=== PATIENT | female | born 1980 | race Caucasian/White ===

== ENCOUNTER 2021-08-28 08:04 | Emergency (ER) | payer MEDICAID, OTHER ==
[~2021-08-28] VITALS: Ht 167.6 cm; Wt 86.0 kg
[2021-08-28] MEDS ORDERED: MELA3TAB39 PO ×2 (09:25)
[2021-08-28] MEDS ORDERED: DOCU100C40 PO ×2 (09:25)
[2021-08-28] MEDS ORDERED: LURA40TA2 PO ×2 (09:33)
[2021-08-28] MEDS ORDERED: BENZ1TAB7 PO ×2 (09:33)
[2021-08-28] MEDS ORDERED: NICO2LOZ47 BC ×2 (09:33)
[2021-08-28] MEDS ORDERED: LORA10CA PO ×2 (09:33)
[2021-08-28] MEDS ORDERED: HYDR50CA5 PO ×2 (09:33)
[2021-08-28 09:37] LABS: CLARITY,URINE CLEAR (Clear); COLOR,URINE YELLOW (Yellow); GLUCOSE, URINE NEGATIVE (Neg); KETONES,URINE NEGATIVE (Neg); LEUKOCYTE ESTERASE ,URINE TRACE (Neg); NITRITES, URINE NEGATIVE (Neg); OCCULT BLOOD,URINE NEGATIVE (Neg); PROTEIN,URINE NEGATIVE (Neg); UROBILINOGEN,URINE 0.2 E.U/dL (0.2-1.0)
[2021-08-28 09:40] LABS: UA COLLECTION TYPE CLN CATCH MIDSTREAM
[2021-08-28 09:41] LABS: BACTERIA,URINE NONE SEEN /HPF (Neg); MUCUS STRANDS NONE SEEN /LPF (Neg); RBC,URINE NONE SEEN /HPF (0-2); SQUAMOUS EPITHELIAL CELL,UR FEW /LPF (FEW); WBC,URINE NONE SEEN /HPF (0-4)
[2021-08-28 09:44] LABS: URINE AMPHETAMINE SCREEN NEGATIVE (Neg); URINE BARBITUATE SCREEN NEGATIVE (Neg); URINE BENZODIAZEPINES SCREEN NEGATIVE (Neg); URINE CANNABINOID SCREEN NEGATIVE (Neg); URINE COCAINE SCREEN NEGATIVE (Neg); URINE METHADONE SCREEN NEGATIVE (Neg); URINE OPIATE SCREEN NEGATIVE (Neg); URINE PHENCYCLIDINE SCREEN NEGATIVE (Neg)
[2021-08-28] MEDS ORDERED: LIDO700A32 TOP ×2 (09:51)
[2021-08-28] MEDS ORDERED: VALA100031 PO ×2 (09:51)
[2021-08-28] MEDS ORDERED: valacyclovir 500mg tablet PO SCH (09:55)
[2021-08-28] MEDS ORDERED: LIDOcaine 5% patch TP SCH (10:00)
[2021-08-28] MEDS ORDERED: ACET-1017 PO ×2 (10:19)
[2021-08-28 10:34] VITALS: BP 133/77
[2021-08-29] MEDS ORDERED: GABA300C PO ×2 (11:08)
[2021-08-31] MEDS ORDERED: LORA10CA PO (09:17)
[2021-08-31] MEDS ORDERED: ACET-1017 PO (09:17)
[2021-08-31] MEDS ORDERED: VALA100031 PO (09:17)
[2021-08-31] MEDS ORDERED: LURA40TA2 PO (09:17)
[2021-08-31] MEDS ORDERED: NICO2LOZ47 BC (09:17)
[2021-08-31] MEDS ORDERED: HYDR50CA5 PO (09:17)
[2021-08-31] MEDS ORDERED: GABA300C PO (09:17)
[2021-08-31] MEDS ORDERED: MELA3TAB39 PO (09:17)
[2021-08-31] MEDS ORDERED: LIDO700A32 TOP (09:17)
[2021-08-31] MEDS ORDERED: BENZ1TAB7 PO (09:17)
[2021-08-31] MEDS ORDERED: DOCU100C40 PO (09:17)
== END 2021-08-28 10:36 | disposition home or self-care (01) ==
LOC: ER 08:05
DX: B02.9 Zoster without complications (principal); K80.20 Calculus of gallbladder without cholecystitis without obstruction; R55 Syncope and collapse; R07.81 Pleurodynia; R68.83 Chills (without fever); F17.200 Nicotine dependence, unspecified, uncomplicated; Z56.0 Unemployment, unspecified; Z59.00 Homelessness unspecified; Z88.1 Allergy status to other antibiotic agents; Z79.899 Other long term (current) drug therapy; Z79.2 Long term (current) use of antibiotics
CPT/HCPCS: 76700; 80305; 81001; 99284

== ENCOUNTER 2021-08-29 10:35 | Emergency (ER) | payer MEDICAID, OTHER ==
[~2021-08-29] VITALS: Ht 167.6 cm; Wt 86.4 kg
[~2021-08-29 10:35] MED LIST: ACET-1017 PO; BENZ1TAB7 PO; DOCU100C40 PO; HYDR50CA5 PO; LIDO700A32 TOP; LORA10CA PO; LURA40TA2 PO; MELA3TAB39 PO; NICO2LOZ47 BC; VALA100031 PO
[2021-08-29 10:47] VITALS: BP 103/80
[2021-08-29] MEDS ORDERED: GABA300C PO ×2 (11:08)
[2021-08-31] MEDS ORDERED: LURA40TA2 PO (09:17)
[2021-08-31] MEDS ORDERED: HYDR50CA5 PO (09:17)
[2021-08-31] MEDS ORDERED: VALA100031 PO (09:17)
[2021-08-31] MEDS ORDERED: GABA300C PO (09:17)
[2021-08-31] MEDS ORDERED: LIDO700A32 TOP (09:17)
[2021-08-31] MEDS ORDERED: LORA10CA PO (09:17)
[2021-08-31] MEDS ORDERED: MELA3TAB39 PO (09:17)
[2021-08-31] MEDS ORDERED: DOCU100C40 PO (09:17)
[2021-08-31] MEDS ORDERED: BENZ1TAB7 PO (09:17)
[2021-08-31] MEDS ORDERED: NICO2LOZ47 BC (09:17)
[2021-08-31] MEDS ORDERED: ACET-1017 PO (09:17)
== END 2021-08-29 11:42 | disposition home or self-care (01) ==
LOC: ER 10:35
DX: B02.9 Zoster without complications (principal); Z56.0 Unemployment, unspecified; Z59.00 Homelessness unspecified; Z88.1 Allergy status to other antibiotic agents; Z79.899 Other long term (current) drug therapy
CPT/HCPCS: 99283